=== PATIENT | female | born 1970 | race Caucasian/White ===

== ENCOUNTER → 2020-09-10 | Outpatient (CLI) | payer OTHER ==
[~2020-09-10] MED LIST: ECOTRIN81 MG PO; IMDUR ER TAB 3030 MG PO; LIPITOR TAB 2020 MG PO; NITROSTAT0.4 MG SL
== END ==
LOC: EXRD 13:15
DX: M25.50 Pain in unspecified joint (principal); M15.9 Polyosteoarthritis, unspecified
CPT/HCPCS: 73130